=== PATIENT | male | born 1945 | race Caucasian/White ===

== ENCOUNTER → 2023-08-12 12:35 | Outpatient (REF) | payer MEDICARE, OTHER, SELFPAY ==
[2023-08-12 13:37] LABS: Blood Urea Nitrogen 22 mg/dl (9-20); Calcium 9.4 mg/dl (8.4-10.2); Carbon Dioxide 27 mmol/L (22-30); Chloride 96 mmol/L (98-107); Glucose 112 mg/dl (70-99); Magnesium 1.9 mg/dl (1.6-2.3); Potassium 4.9 mmol/L (3.5-5.1); Sodium 132 mmol/L (135-145); eGFR > 60.00
== END ==
LOC: REG 12:35
PROVIDERS: ATTENDING PHYSICIAN Student in an Organized Health Care Education/Training Program; FAMILY PHYSICIAN Family Medicine
DX: I10 Essential (primary) hypertension (principal); E11.9 Type 2 diabetes mellitus without complications; E87.1 Hypo-osmolality and hyponatremia; E03.9 Hypothyroidism, unspecified
CPT/HCPCS: 36415; 80048; 83735; 84100

== ENCOUNTER → 2023-09-07 08:09 | Outpatient (REF) | payer MEDICARE, OTHER, SELFPAY ==
[2023-09-07 08:45] LABS: % Basophils 0.2 % (0-2); % Eosinophils 4.3 % (0-6); % Immature Granulocytes 0.3 % (0-0.5); % Lymphocytes 20.2 % (20.5-51.1); % Monocytes 12.4 % (1.7-9.3); % Neutrophils 62.6 % (42.2-75.2); Absolute Eosinophils 0.3 10^3/uL (0-0.7); Absolute Lymphocytes 1.2 10^3/uL (1.2-3.4); Absolute Monocytes 0.7 10^3/uL (0.1-0.6); Absolute Neutrophils 3.6 10^3/uL (1.4-6.5); Hematocrit 39.5 % (39.0-52.0); Hemoglobin 13.8 g/dL (13.0-18.0); Mean Corp Hgb Conc. 34.9 g/dL (33.0-37.0); Mean Corpuscular Hgb 32.1 pg (27.0-31.0); Mean Corpuscular Volume 91.9 fL (80.0-94.0); Mean Platelet Volume 10.4 fL (7.4-10.4); Nucleated Red Blood Cells % 0 % (-); Platelet Count 147 10^3/uL (130-400); Red Cell Dist. Width 12.9 % (11.5-14.5); White Blood Cell Count 5.8 10^3/uL (4.8-10.8)
[2023-09-07 09:31] LABS: ALT (SGPT) 26 U/L (0-50); AST (SGOT) 28 U/L (17-59); Albumin 4.4 g/dl (3.5-5.0); Alkaline Phosphatase 80 U/L (38-126); Blood Urea Nitrogen 16 mg/dl (9-20); Calcium 9.5 mg/dl (8.4-10.2); Carbon Dioxide 26 mmol/L (22-30); Chloride 96 mmol/L (98-107); Glucose 118 mg/dl (70-99); HDL Cholesterol 41 mg/dl; LDL Cholesterol, Calculated 61 mg/dl; Potassium 4.9 mmol/L (3.5-5.1); Sodium 129 mmol/L (135-145); Total Bilirubin 1.2 mg/dl (0.2-1.3); Total Cholesterol 132 mg/dl (50-199); Total Protein 6.9 g/dl (6.3-8.2); Triglyceride 152 mg/dl (10-149); Very Low Density Lipoprotein 30 mg/dl (0-30); eGFR > 60.00
[2023-09-07 12:25] LABS: Glycohemoglobin (HgbA1c) 6.8 % (4.0-5.6)
== END ==
LOC: REG 08:09
PROVIDERS: ATTENDING PHYSICIAN Family Medicine
DX: E11.59 Type 2 diabetes mellitus with other circulatory complications (principal); E78.5 Hyperlipidemia, unspecified; R53.83 Other fatigue
CPT/HCPCS: 36415; 80053; 80061; 83036; 85025

== ENCOUNTER → 2023-12-13 08:29 | Outpatient (REF) | payer MEDICARE, OTHER, SELFPAY ==
[2023-12-13 09:39] LABS: Blood Urea Nitrogen 21 mg/dl (9-20); Calcium 9.3 mg/dl (8.4-10.2); Carbon Dioxide 26 mmol/L (22-30); Chloride 96 mmol/L (98-107); Glucose 159 mg/dl (70-99); Potassium 5.7 mmol/L (3.5-5.1); Sodium 128 mmol/L (135-145); eGFR > 60.00
== END ==
LOC: REG 08:29
PROVIDERS: ATTENDING PHYSICIAN Student in an Organized Health Care Education/Training Program; FAMILY PHYSICIAN Family Medicine
DX: E87.1 Hypo-osmolality and hyponatremia (principal)
CPT/HCPCS: 36415; 80048

== ENCOUNTER → 2023-12-17 09:39 | Outpatient (REF) | payer MEDICARE, OTHER, SELFPAY ==
[2023-12-17 11:09] LABS: Blood Urea Nitrogen 15 mg/dl (9-20); Calcium 9.1 mg/dl (8.4-10.2); Carbon Dioxide 23 mmol/L (22-30); Chloride 91 mmol/L (98-107); Glucose 123 mg/dl (70-99); Potassium 5.2 mmol/L (3.5-5.1); Sodium 124 mmol/L (135-145); eGFR > 60.00
== END ==
LOC: REG 09:39
PROVIDERS: ATTENDING PHYSICIAN Student in an Organized Health Care Education/Training Program; FAMILY PHYSICIAN Family Medicine
DX: E87.1 Hypo-osmolality and hyponatremia (principal)
CPT/HCPCS: 36415; 80048

== ENCOUNTER → 2023-12-22 13:36 | Outpatient (REF) | payer MEDICARE, OTHER, SELFPAY ==
[2023-12-22 16:47] LABS: Osmolality Urine 436 mOsm/kg (300-900)
[2023-12-22 17:04] LABS: Blood Urea Nitrogen 15 mg/dl (9-20); Calcium 8.8 mg/dl (8.4-10.2); Carbon Dioxide 27 mmol/L (22-30); Chloride 92 mmol/L (98-107); Glucose 94 mg/dl (70-99); Potassium 4.8 mmol/L (3.5-5.1); Sodium 126 mmol/L (135-145); Urine Sodium 60 mmol/L (30-90); eGFR > 60.00
== END ==
LOC: REG 13:36
PROVIDERS: ATTENDING PHYSICIAN Student in an Organized Health Care Education/Training Program; FAMILY PHYSICIAN Family Medicine
DX: E87.1 Hypo-osmolality and hyponatremia (principal)
CPT/HCPCS: 36415; 80048; 83935; 84300

== ENCOUNTER → 2023-12-31 08:58 | Outpatient (REF) | payer MEDICARE, OTHER, SELFPAY ==
[2023-12-31 10:24] LABS: Osmolality Urine 295 mOsm/kg (300-900)
== END ==
LOC: REG 08:58
PROVIDERS: ATTENDING PHYSICIAN Student in an Organized Health Care Education/Training Program; FAMILY PHYSICIAN Family Medicine
DX: E87.1 Hypo-osmolality and hyponatremia (principal)
CPT/HCPCS: 83935

== ENCOUNTER → 2024-01-10 10:58 | Outpatient (REF) | payer MEDICARE, OTHER, SELFPAY ==
[2024-01-10 13:42] LABS: Blood Urea Nitrogen 11 mg/dl (9-20); Calcium 8.9 mg/dl (8.4-10.2); Carbon Dioxide 29 mmol/L (22-30); Chloride 93 mmol/L (98-107); Glucose 152 mg/dl (70-99); Potassium 4.4 mmol/L (3.5-5.1); Sodium 132 mmol/L (135-145); eGFR > 60.00
== END ==
LOC: REG 10:58
PROVIDERS: ATTENDING PHYSICIAN Student in an Organized Health Care Education/Training Program; FAMILY PHYSICIAN Family Medicine
DX: E87.1 Hypo-osmolality and hyponatremia (principal)
CPT/HCPCS: 36415; 80048

== ENCOUNTER → 2024-01-24 08:06 | Outpatient (REF) | payer MEDICARE, OTHER, SELFPAY ==
[2024-01-24 09:58] LABS: Blood Urea Nitrogen 13 mg/dl (9-20); Calcium 9.3 mg/dl (8.4-10.2); Carbon Dioxide 25 mmol/L (22-30); Chloride 93 mmol/L (98-107); Glucose 187 mg/dl (70-99); Potassium 4.3 mmol/L (3.5-5.1); Sodium 131 mmol/L (135-145); eGFR > 60.00
== END ==
LOC: REG 08:06
PROVIDERS: ATTENDING PHYSICIAN Student in an Organized Health Care Education/Training Program; FAMILY PHYSICIAN Family Medicine
DX: I10 Essential (primary) hypertension (principal); E87.1 Hypo-osmolality and hyponatremia; E11.59 Type 2 diabetes mellitus with other circulatory complications
CPT/HCPCS: 36415; 80048

== ENCOUNTER → 2024-04-07 07:56 | Outpatient (REF) | payer MEDICARE, OTHER, SELFPAY ==
[2024-04-07 09:00] LABS: % Basophils 0.2 % (0-2); % Eosinophils 3.5 % (0-6); % Immature Granulocytes 0.3 % (0-0.5); % Lymphocytes 23.6 % (20.5-51.1); % Monocytes 11.5 % (1.7-9.3); % Neutrophils 60.9 % (42.2-75.2); Absolute Eosinophils 0.2 10^3/uL (0-0.7); Absolute Lymphocytes 1.4 10^3/uL (1.2-3.4); Absolute Monocytes 0.7 10^3/uL (0.1-0.6); Absolute Neutrophils 3.7 10^3/uL (1.4-6.5); Hematocrit 42.9 % (39.0-52.0); Hemoglobin 14.5 g/dL (13.0-18.0); Mean Corp Hgb Conc. 33.8 g/dL (33.0-37.0); Mean Corpuscular Hgb 31.9 pg (27.0-31.0); Mean Corpuscular Volume 94.5 fL (80.0-94.0); Mean Platelet Volume 10.8 fL (7.4-10.4); Nucleated Red Blood Cells % 0 % (-); Platelet Count 147 10^3/uL (130-400); Red Blood Cell Count 4.54 10^6/uL (4.70-6.10); Red Cell Dist. Width 12.7 % (11.5-14.5)
[2024-04-07 09:19] LABS: ALT (SGPT) 29 U/L (0-50); AST (SGOT) 29 U/L (17-59); Albumin 4.2 g/dl (3.5-5.0); Alkaline Phosphatase 81 U/L (38-126); Blood Urea Nitrogen 15 mg/dl (9-20); Carbon Dioxide 31 mmol/L (22-30); Chloride 98 mmol/L (98-107); Glucose 123 mg/dl (70-99); HDL Cholesterol 41 mg/dl; LDL Cholesterol, Calculated 77 mg/dl; Potassium 4.7 mmol/L (3.5-5.1); Sodium 138 mmol/L (135-145); Total Bilirubin 1.2 mg/dl (0.2-1.3); Total Cholesterol 156 mg/dl (50-199); Total Protein 6.7 g/dl (6.3-8.2); Triglyceride 191 mg/dl (10-149); Very Low Density Lipoprotein 38 mg/dl (0-30); eGFR > 60.00
[2024-04-07 09:33] LABS: Microalbumin, Random Urine 5.2 mg/dl (0.6-1.7); Microalbumin/creatinine Ratio 21.2 mg/g
[2024-04-07 09:49] LABS: TSH Reflex To Free T4 0.12 uIU/ml (0.47-4.68)
[2024-04-07 10:52] LABS: Free T4 1.46 ng/dl (0.78-2.19)
[2024-04-07 11:46] LABS: Glycohemoglobin (HgbA1c) 6.6 % (4.0-5.6)
== END ==
LOC: REG 07:56
PROVIDERS: ATTENDING PHYSICIAN Student in an Organized Health Care Education/Training Program
DX: Z76.89 Persons encountering health services in other specified circumstances (principal); I63.9 Cerebral infarction, unspecified; R73.01 Impaired fasting glucose; E03.9 Hypothyroidism, unspecified
CPT/HCPCS: 36415; 80053; 80061; 82043; 82570; 83036; 84439; 84443; 85025

== ENCOUNTER → 2024-04-17 10:41 | Outpatient (REF) | payer MEDICARE, OTHER, SELFPAY ==
[2024-04-17 13:39] LABS: Blood Urea Nitrogen 16 mg/dl (9-20); Calcium 9.1 mg/dl (8.4-10.2); Carbon Dioxide 33 mmol/L (22-30); Chloride 98 mmol/L (98-107); Glucose 130 mg/dl (70-99); Potassium 4.4 mmol/L (3.5-5.1); Sodium 138 mmol/L (135-145); Uric Acid 7.5 mg/dl (3.5-8.5); eGFR > 60.00
== END ==
LOC: REG 10:41
PROVIDERS: ATTENDING PHYSICIAN Specialist; FAMILY PHYSICIAN Student in an Organized Health Care Education/Training Program
DX: E87.1 Hypo-osmolality and hyponatremia (principal); I10 Essential (primary) hypertension
CPT/HCPCS: 36415; 80048; 84550

== ENCOUNTER → 2024-10-03 07:27 | Outpatient (REF) | payer MEDICARE, OTHER, SELFPAY ==
[2024-10-03 08:57] LABS: % Basophils 0.3 % (0-2); % Eosinophils 4.1 % (0-6); % Immature Granulocytes 0.2 % (0-0.5); % Lymphocytes 22.3 % (20.5-51.1); % Monocytes 9.2 % (1.7-9.3); % Neutrophils 63.9 % (42.2-75.2); Absolute Eosinophils 0.3 10^3/uL (0-0.7); Absolute Lymphocytes 1.4 10^3/uL (1.2-3.4); Absolute Monocytes 0.6 10^3/uL (0.1-0.6); Hematocrit 44.1 % (39.0-52.0); Hemoglobin 15.3 g/dL (13.0-18.0); Mean Corp Hgb Conc. 34.7 g/dL (33.0-37.0); Mean Corpuscular Hgb 31.9 pg (27.0-31.0); Mean Corpuscular Volume 91.9 fL (80.0-94.0); Mean Platelet Volume 11.4 fL (7.4-10.4); Nucleated Red Blood Cells % 0 % (-); Platelet Count 139 10^3/uL (130-400); Red Cell Dist. Width 12.8 % (11.5-14.5); White Blood Cell Count 6.3 10^3/uL (4.8-10.8)
[2024-10-03 09:07] LABS: Microalbumin, Random Urine 8.5 mg/dl (0.6-1.7); Microalbumin/creatinine Ratio 43.3 mg/g
[2024-10-03 09:15] LABS: ALT (SGPT) 25 U/L (0-50); AST (SGOT) 26 U/L (17-59); Albumin 4.4 g/dl (3.5-5.0); Alkaline Phosphatase 77 U/L (38-126); Blood Urea Nitrogen 13 mg/dl (9-20); Calcium 9.2 mg/dl (8.4-10.2); Carbon Dioxide 31 mmol/L (22-30); Chloride 103 mmol/L (98-107); Glucose 137 mg/dl (70-99); HDL Cholesterol 39 mg/dl; LDL Cholesterol, Calculated 73 mg/dl; Potassium 3.9 mmol/L (3.5-5.1); Sodium 140 mmol/L (135-145); Total Bilirubin 1.4 mg/dl (0.2-1.3); Total Cholesterol 150 mg/dl (50-199); Triglyceride 191 mg/dl (10-149); Very Low Density Lipoprotein 38 mg/dl (0-30); eGFR > 60.00
[2024-10-03 09:39] LABS: TSH Reflex To Free T4 0.38 uIU/ml (0.47-4.68)
[2024-10-03 09:59] LABS: Glycohemoglobin (HgbA1c) 6.7 % (4.0-5.6)
[2024-10-03 10:09] LABS: Free T4 1.52 ng/dl (0.78-2.19)
== END ==
LOC: REG 07:27
PROVIDERS: ATTENDING PHYSICIAN Student in an Organized Health Care Education/Training Program
DX: E78.1 Pure hyperglyceridemia (principal); E11.59 Type 2 diabetes mellitus with other circulatory complications; E03.9 Hypothyroidism, unspecified; I48.91 Unspecified atrial fibrillation; E78.5 Hyperlipidemia, unspecified
CPT/HCPCS: 36415; 80053; 80061; 82043; 82570; 83036; 84439; 84443; 85025

== ENCOUNTER → 2024-10-11 09:26 | Outpatient (REF) | payer MEDICARE, OTHER, SELFPAY ==
[2024-10-11 10:36] LABS: Urine Sodium 91 mmol/L (30-90)
[2024-10-11 10:49] LABS: Albumin 4.3 g/dl (3.5-5.0); Blood Urea Nitrogen 17 mg/dl (9-20); Calcium 9.3 mg/dl (8.4-10.2); Carbon Dioxide 33 mmol/L (22-30); Chloride 107 mmol/L (98-107); Glucose 140 mg/dl (70-99); Phosphorus 3.2 mg/dl (2.5-4.5); Potassium 4.7 mmol/L (3.5-5.1); Sodium 143 mmol/L (135-145); eGFR > 60.00
== END ==
LOC: REG 09:26
PROVIDERS: ATTENDING PHYSICIAN Internal Medicine Nephrology; FAMILY PHYSICIAN Student in an Organized Health Care Education/Training Program
DX: E87.1 Hypo-osmolality and hyponatremia (principal)
CPT/HCPCS: 36415; 80069; 84300

== ENCOUNTER → 2025-01-08 11:31 | Outpatient (REF) | payer MEDICARE, OTHER, SELFPAY ==
[2025-01-08 12:26] LABS: Blood Urea Nitrogen 11 mg/dl (9-20); Calcium 8.8 mg/dl (8.4-10.2); Carbon Dioxide 30 mmol/L (22-30); Chloride 99 mmol/L (98-107); Glucose 128 mg/dl (70-99); Potassium 4.6 mmol/L (3.5-5.1); Sodium 135 mmol/L (135-145); eGFR > 60.00
== END ==
LOC: REG 11:31
PROVIDERS: ATTENDING PHYSICIAN Internal Medicine Nephrology
DX: E87.1 Hypo-osmolality and hyponatremia (principal)
CPT/HCPCS: 36415; 80048

== ENCOUNTER → 2025-02-19 10:44 | Outpatient (REF) | payer MEDICARE, OTHER, SELFPAY ==
[2025-02-19 13:31] LABS: PSA, Total - Screen 2.60 ng/ml (0.0-4.0); TSH 0.91 uIU/ml (0.47-4.68)
== END ==
LOC: REG 10:44
PROVIDERS: ATTENDING PHYSICIAN Student in an Organized Health Care Education/Training Program
DX: Z12.5 Encounter for screening for malignant neoplasm of prostate (principal); E03.9 Hypothyroidism, unspecified
CPT/HCPCS: 36415; 84443; G0103